=== PATIENT | female | born 1960 | race Caucasian/White ===

== ENCOUNTER 2017-10-13 11:29 | Emergency (ER) | payer MEDICAID ==
[~2017-10-13] VITALS: Ht 152.4 cm; Wt 77.1 kg
[2017-10-13 11:29] VITALS: BP_SYST 142
--- NOTE | 2017-10-13 11:29 | NUR ---
Patient to ER bed 07. Side rails up. Report given to MARIO Morejon. Pt arrived BLS in police custody from [facility].
--- NOTE | 2017-10-13 11:35 | NUR ---
Pt in custody by PD, brought in for low back pain which she states comes from laying in bed at long term. Pt reports pain level 10/10, denies chest pain or sob, denies nausea or vomiting. Pt in no acute respiratory distress, speaking full sentences, AOX4, PD at bedside.
--- NOTE | 2017-10-13 11:40 | NUR ---
ER at bedside examining patient.
[2017-10-13] MEDS ORDERED: MORPHINE SULFATE 10 MG/ML VIAL IM ONE (11:45)
[2017-10-13] MEDS ORDERED: ONDANSETRON 4 MG ODT TAB PO ONE (11:45)
[2017-10-13] MEDS ORDERED: KETOROLAC TROMETHAMINE 30 MG VIAL IM ONE (11:45)
--- NOTE | 2017-10-13 11:50 | NUR ---
IM 30mg Toradol, IM 10mg morphine, and PO 4mg Zofran administered. Pt tolerated well. Pt reports immediate relief of pain. Cup of water provided per request. Will continue to monitor.
--- NOTE | 2017-10-13 11:50 | NUR ---
Lamont callaway in [facility] - 10/13/17 at 1200 by [email or web address] MANJINDER Nicole at bedside examining patient.
[2017-10-13 12:30] VITALS: BP_SYST 129
--- NOTE | 2017-10-13 12:30 | NUR ---
Patient given written and verbal discharge instructions and verbalizes understanding. ER MD Ge discussed with patient the results and treatment provided. Patient in stable condition. ID arm band removed. Rx of Motrin, [place] given. Patient educated on pain management and to follow up with PMD. Pain Scale 0. Opportunity for questions provided and answered. Medication side effect fact sheet provided.
== END 2017-10-13 12:30 ==
LOC: SED 11:29
DX: M54.5 Low back pain (principal); F17.200 Nicotine dependence, unspecified, uncomplicated; M19.90 Unspecified osteoarthritis, unspecified site
CPT/HCPCS: 96372; 99284; J1885; J2270; Q0162